=== PATIENT | male | born 1960 | race African-American/Black ===

== ENCOUNTER 2018-07-24 16:30 | Inpatient (IN) | payer MEDICAID ==
[~2018-07-24] VITALS: Ht 175.3 cm; Wt 79.2 kg
[~2018-07-24 16:30] MED LIST: ALBU0.212 IH; QUET100T PO; SITA25 PO
[2018-07-24] MEDS ORDERED: GLUCAGON,HUMAN RECOMBINANT 1 MG VIAL IM PRN (18:00)
[2018-07-24] MEDS ORDERED: BISACODYL 5 MG EC TABLET PO PRN (18:00)
[2018-07-24] MEDS ORDERED: ALBUTEROL SULFATE 2.5 MG/0.5 ML NEB SOLUTION NEB PRN (18:00)
[2018-07-24] MEDS ORDERED: CloNIDine HCL 0.1 MG TABLET PO PRN (18:00)
[2018-07-24] MEDS ORDERED: ZOLPIDEM TARTRATE 5 MG TABLET PO PRN (18:15)
[2018-07-24] MEDS ORDERED: DEXTROSE 50%-WATER 25 GM/50 ML SYRINGE IVP PRN (18:15)
[2018-07-24] MEDS: NICOTINE 21 MG/24 HOUR PATCH TD SCH (19:15)
[2018-07-24] MEDS: OLANZapine 10 MG TABLET PO SCH (19:15)
[2018-07-24] MEDS: ATORVASTATIN CALCIUM 10 MG TABLET PO SCH (20:41)
[2018-07-24 20:44] LABS: GLUCOMETER DEV NAME(LOC) 3EX.; GLUCOSE,POINT OF CARE 131 MG/DL (70-110)
[2018-07-25 05:45] LABS: GLUCOMETER DEV NAME(LOC) 3EX.; GLUCOSE,POINT OF CARE 139 MG/DL (70-110)
[2018-07-25 07:03] VITALS: BP 150/88
[2018-07-25] MEDS ORDERED: LISINOPRIL 20 MG TABLET PO SCH (09:00)
[2018-07-25] MEDS: AmLODIPine BESYLATE 10 MG TABLET PO SCH (09:19)
[2018-07-25] MEDS: NICOTINE 21 MG/24 HOUR PATCH TD SCH (09:19)
[2018-07-25] MEDS: BuPROPion HCL XL 150 MG ER TABLET PO SCH (09:19)
[2018-07-25] MEDS: ENOXAPARIN SODIUM 40 MG/0.4 ML PF SYRINGE SQ SCH (09:20)
[2018-07-25 10:05] VITALS: BP 176/99
[2018-07-25 10:35] VITALS: BP 145/85
[2018-07-25 11:34] LABS: GLUCOMETER DEV NAME(LOC) 3EX.; GLUCOSE,POINT OF CARE 189 MG/DL (70-110)
[2018-07-25] MEDS: INSULIN LISPRO 100 UNITS/ML SQ PRN (11:45)
[2018-07-25] MEDS ORDERED: LISINOPRIL 20 MG TABLET PO ONE (13:30)
[2018-07-25 16:29] LABS: GLUCOMETER DEV NAME(LOC) 3EX.; GLUCOSE,POINT OF CARE 127 MG/DL (70-110)
[2018-07-25 19:36] VITALS: BP 141/88
[2018-07-25] MEDS: ATORVASTATIN CALCIUM 10 MG TABLET PO SCH (20:12)
[2018-07-25] MEDS: OLANZapine 10 MG TABLET PO SCH (20:12)
[2018-07-25 20:19] LABS: GLUCOMETER DEV NAME(LOC) 3EX.; GLUCOSE,POINT OF CARE 120 MG/DL (70-110)
[2018-07-26 03:59] LABS: GLUCOMETER DEV NAME(LOC) 3EX.; GLUCOSE,POINT OF CARE 102 MG/DL (70-110)
[2018-07-26 04:30] VITALS: BP 134/97
[2018-07-26] MEDS: ACETAMINOPHEN 325 MG TABLET PO PRN ×2 (04:35→16:33)
[2018-07-26 06:04] LABS: GLUCOMETER DEV NAME(LOC) 3EX.; GLUCOSE,POINT OF CARE 138 MG/DL (70-110)
[2018-07-26] MEDS: GLIMEPIRIDE 2 MG TABLET PO SCH (06:56)
[2018-07-26] MEDS ORDERED: MAG HYDROX/AL HYDROX/SIMETH ES 30 ML SUSPENSION UDCUP PO PRN (07:45)
[2018-07-26 08:05] VITALS: BP 166/106
[2018-07-26 08:14] LABS: BASOPHILS % (AUTO) 0.6 % (0.0-2.0); HEMATOCRIT 49.5 % (41-53); HEMOGLOBIN 16.7 g/dL (13.5-17.5); LYMPHOCYTES # (AUTO) 1.2 K/uL (1.0-4.8); LYMPHOCYTES % (AUTO) 9.3 % (22.0-44.0); MEAN CORPUSCULAR HEMOGLOBIN 29.8 pg (26.0-34.0); MEAN CORPUSCULAR HGB CONC 33.9 G/dL (31.0-37.0); MEAN CORPUSCULAR VOLUME 88 fL (80-100); MONOCYTES # (AUTO) 0.4 K/uL (0.1-1.0); MONOCYTES % (AUTO) 3.2 % (2.0-9.0); PLATELET COUNT (AUTO) 345 K/uL (150-450); RED BLOOD CELL COUNT(AUTO) 5.61 MIL/uL (4.50-5.90); RED CELL DISTRIBUTION WIDTH 13.6 % (11.5-14.5)
[2018-07-26 08:18] LABS: NEUTROPHILS % (AUTO) 85.9 % (40.0-70.0)
[2018-07-26 08:38] LABS: ANION GAP 10 mmol/L (8-16); CALCIUM, TOTAL 10.1 mg/dL (8.8-10.5); CARBON DIOXIDE 28 mmol/L (22-29); CHLORIDE 102 mmol/L (98-107); CREATININE 1.06 mg/dL (0.60-1.30); GLOMERULAR FILTR. RATE CALC > 60 mL/min (>60); GLUCOSE,RANDOM 118 mg/dL (70-110); POTASSIUM 4.1 mmol/L (3.5-5.1); SODIUM SERUM 140 mmol/L (136-145); UREA NITROGEN, BLOOD 13 mg/dL (7-18)
[2018-07-26 08:48] LABS: ALANINE AMINOTRANSFERASE 61 U/L (12-78); ALBUMIN 4.3 g/dL (3.4-5.0); ALKALINE PHOSPHATASE 160 U/L (46-116); AMYLASE 194 U/L (25-115); ASPARTATE AMINOTRANSFERASE 42 U/L (15-37); BILIRUBIN,TOTAL 0.3 mg/dL (0.1-1.0); TOTAL PROTEIN, SERUM 8.5 g/dL (6.4-8.2)
[2018-07-26] MEDS: LISINOPRIL 20 MG TABLET PO SCH (09:05)
[2018-07-26] MEDS: BuPROPion HCL XL 150 MG ER TABLET PO SCH (09:05)
[2018-07-26] MEDS: NICOTINE 21 MG/24 HOUR PATCH TD SCH (09:06)
[2018-07-26] MEDS: AmLODIPine BESYLATE 10 MG TABLET PO SCH (09:06)
[2018-07-26] MEDS: ENOXAPARIN SODIUM 40 MG/0.4 ML PF SYRINGE SQ SCH (09:06)
[2018-07-26] MEDS ORDERED: HYDROCODONE/ACETAMINOPHEN 5-325 MG TABLET PO PRN (09:30)
[2018-07-26 09:55] VITALS: BP 148/92
[2018-07-26 10:02] LABS: LIPASE 135 U/L (73-393)
[2018-07-26 10:20] LABS: INR 0.9 (0.9-1.1); PROTHROMBIN TIME 9.9 SEC (9.4-11.6)
[2018-07-26 10:55] VITALS: BP 142/86
[2018-07-26 11:19] LABS: GLUCOMETER DEV NAME(LOC) 3EX.; GLUCOSE,POINT OF CARE 154 MG/DL (70-110)
[2018-07-26] MEDS ORDERED: DICYCLOMINE HCL 20 MG TABLET PO PRN (12:00)
[2018-07-26] MEDS: INSULIN LISPRO 100 UNITS/ML SQ PRN ×2 (13:00→20:24)
[2018-07-26 16:33] VITALS: BP 139/78
[2018-07-26 17:04] LABS: GLUCOMETER DEV NAME(LOC) 3EX.; GLUCOSE,POINT OF CARE 107 MG/DL (70-110)
[2018-07-26] MEDS ORDERED: LORazepam 2 MG TABLET PO PRN (18:30)
[2018-07-26] MEDS ORDERED: HALOPERIDOL 5 MG TABLET PO PRN (18:30)
[2018-07-26] MEDS: OLANZapine 10 MG TABLET PO SCH (20:22)
[2018-07-26] MEDS: DICYCLOMINE HCL 20 MG TABLET PO PRN (20:22)
[2018-07-26] MEDS: ATORVASTATIN CALCIUM 10 MG TABLET PO SCH (20:22)
[2018-07-26 20:40] LABS: GLUCOMETER DEV NAME(LOC) 3EX.; GLUCOSE,POINT OF CARE 148 MG/DL (70-110)
[2018-07-27 06:05] LABS: GLUCOMETER DEV NAME(LOC) 3EX.; GLUCOSE,POINT OF CARE 111 MG/DL (70-110)
[2018-07-27] MEDS: GLIMEPIRIDE 2 MG TABLET PO SCH (07:02)
[2018-07-27 08:05] VITALS: BP 164/106
[2018-07-27] MEDS: LISINOPRIL 20 MG TABLET PO SCH (08:59)
[2018-07-27] MEDS: ENOXAPARIN SODIUM 40 MG/0.4 ML PF SYRINGE SQ SCH (08:59)
[2018-07-27] MEDS: BuPROPion HCL XL 150 MG ER TABLET PO SCH (08:59)
[2018-07-27] MEDS: AmLODIPine BESYLATE 10 MG TABLET PO SCH (08:59)
[2018-07-27] MEDS: NICOTINE 21 MG/24 HOUR PATCH TD SCH (09:00)
[2018-07-27] MEDS: DICYCLOMINE HCL 20 MG TABLET PO PRN (09:01)
[2018-07-27 11:29] LABS: GLUCOMETER DEV NAME(LOC) 3EX.; GLUCOSE,POINT OF CARE 171 MG/DL (70-110)
[2018-07-27] MEDS: INSULIN LISPRO 100 UNITS/ML SQ PRN (12:02)
[2018-07-27] MEDS ORDERED: BUPR-93 PO (15:05)
[2018-07-27] MEDS ORDERED: OLAN10TA3 PO (15:05)
[2018-07-27] MEDS ORDERED: ATOR10TA84 PO (15:07)
[2018-07-27] MEDS ORDERED: AMLO-512 PO (15:07)
[2018-07-27] MEDS ORDERED: GLIM2 PO (15:08)
[2018-07-27] MEDS ORDERED: LISI-662 PO (15:09)
[2018-07-27] MEDS ORDERED: DICY20 PO (15:11)
== END 2018-07-27 16:00 | disposition home or self-care (01) | DRG 750 ==
LOC: 3EI 16:30
PROVIDERS: ADMIT Psychiatry & Neurology Psychiatry; ATTEND Psychiatry & Neurology Child & Adolescent Psychiatry
DX: F25.1 Schizoaffective disorder, depressive type (principal); K85.90 Acute pancreatitis without necrosis or infection, unspecified; E11.9 Type 2 diabetes mellitus without complications; R74.8 Abnormal levels of other serum enzymes; B19.20 Unspecified viral hepatitis C without hepatic coma; E78.5 Hyperlipidemia, unspecified; F12.90 Cannabis use, unspecified, uncomplicated; F15.90 Other stimulant use, unspecified, uncomplicated; J44.9 Chronic obstructive pulmonary disease, unspecified; I10 Essential (primary) hypertension; K52.9 Noninfective gastroenteritis and colitis, unspecified; F32.9 Major depressive disorder, single episode, unspecified; F41.9 Anxiety disorder, unspecified; Z90.49 Acquired absence of other specified parts of digestive tract; Z79.899 Other long term (current) drug therapy
CPT/HCPCS: 70450; 74176; 87081; J1650